=== PATIENT | male | born 1980 | race American Indian/Alaskan Native ===

== ENCOUNTER 2016-12-03 12:05 | Emergency (ER) | payer OTHER, MEDICAID ==
[2016-12-03 12:55] VITALS: BP 136/67
[2016-12-03] MEDS ORDERED: Ondansetron 4 MG Tab.DIS PO ONE (12:59)
[2016-12-03] MEDS ORDERED: Doxycycline 100 MG Cap PO ONE (12:59)
--- NOTE | 2016-12-03 13:18 | EDM.PDOC ---
Scribed by Meeta Hillman 12/03/16 1317 for Celestino Wilson MD ED HPI GENERAL MEDICAL PROBLEM - General Chief Complaint: Fever Stated Complaint: hi fever sick [id number] Time Seen by Provider: 12/03/16 12:53 Source of Information: Reports: Patient, RN, RN Notes Reviewed History Limitations: Reports: No Limitations - History of Present Illness INITIAL COMMENTS - FREE TEXT/NARRATIVE: Patient complains of tick bite to the left anterior king yesterday. Patient states that he removed the tick immediately when he found it. Late last evening he developed chills and subjective fever, little nausea with one episode of emesis and generalized body aches. Patient states his nephew was recently diagnosed with Lyme's disease. His girlfriend googled Lyme's disease and thinks he has it. He denies any swollen joints. Location: Reports: Lower Extremity, Left Quality: Reports: Ache Severity: Moderate Improves with: Reports: None Worsens with: Reports: None Associated Symptoms: Reports: No Other Symptoms - Related Data Allergies Allergy/AdvReac Type Severity Reaction Status Date / Time cephalexin monohydrate Allergy Hives Verified 03/08/14 08:03 [From Keflex] Home Meds: Home Meds ClonazePAM [KlonoPIN] 1 mg PO TID 03/08/14 [History] levETIRAcetam [Keppra] 1 tab PO BID 12/03/16 [History] Past Medical History Neurological History: Reports: Other (See Below) (epilepsy) Psychiatric History: Reports: Anxiety (with panic attacks) Social & Family History - Tobacco Use Smoking Status *Q: Current Every Day Smoker Years of Tobacco use: 11 - Alcohol Use Days Per Week of Alcohol Use: 0 - Recreational Drug Use Recreational Drug Use: No ED ROS GENERAL - Review of Systems Review Of Systems: ROS reveals no pertinent complaints other than HPI. ED EXAM, GENERAL - Physical Exam Exam: See Below Exam Limited By: No Limitations General Appearance: Alert, WD/WN, No Apparent Distress Eye Exam: Bilateral Eye: Normal Inspection Ears: Normal External Exam, Normal Canal, Hearing Grossly Normal, Normal TMs Nose: Normal Inspection, Normal Mucosa, No Blood Throat/Mouth: Normal Inspection, Normal Lips, Normal Teeth, Normal Gums, Normal Oropharynx, Normal Voice, No Airway Compromise Head: Atraumatic, Normocephalic Neck: Normal Inspection, Supple, Non-Tender, Full Range of Motion Respiratory/Chest: No Respiratory Distress, Lungs Clear, Normal Breath Sounds, No Accessory Muscle Use, Chest Non-Tender Cardiovascular: Normal Peripheral Pulses, Regular Rate, Rhythm, No Edema, No Gallop, No JVD, No Murmur, No Rub GI/Abdominal: Normal Bowel Sounds, Soft, Non-Tender, No Organomegaly, No Distention, No Abnormal Bruit, No Mass (Male) Exam: Deferred Rectal (Males) Exam: Deferred Back Exam: Normal Inspection, Full Range of Motion, NT Extremities: Normal Inspection, Normal Range of Motion, Non-Tender, Normal Capillary Refill, No Pedal Edema Neurological: Alert, Oriented, CN II-XII Intact, Normal Cognition, Normal Gait, Normal Reflexes, No Motor/Sensory Deficits Psychiatric: Anxious Skin Exam: Other (a 2cm diameter area of erythema with a central tick bite with no retained tick material. No bulls eye rash.) Lymphatic: No Adenopathy Course - Vital Signs Last Recorded V/S: Last Vital Signs Temp 36.5 C 12/03/16 12:40 Pulse 60 12/03/16 12:40 Resp 16 12/03/16 12:40 BP 136/67 12/03/16 12:40 Pulse Ox 99 12/03/16 12:40 - Orders/Labs/Meds Orders: Active Orders 24 hr Category Date Time Status AMYLASE [CHEM] Stat Lab 12/03/16 13:10 Received CBC WITH AUTO DIFF [HEME] Stat Lab 12/03/16 13:10 Received COMPREHENSIVE METABOLIC PN,CMP [CHEM] Stat Lab 12/03/16 13:10 Received LIPASE [CHEM] Stat Lab 12/03/16 13:10 Received Meds: Medications Discontinued Medications Generic Name Dose Route Start Last Admin Trade Name Freq PRN Reason Stop Dose Admin Doxycycline Hyclate 100 mg 12/03/16 12:59 Vibramycin PO 12/03/16 13:00 ONETIME ONE Ondansetron HCl 4 mg 12/03/16 12:59 Zofran Odt PO 12/03/16 13:00 ONETIME ONE Departure - Departure Time of Disposition: 13:17 Disposition: Home, Self-Care 01 Condition: Good Clinical Impression: Myalgia Tick bite of left lower leg Qualifiers: Encounter type: initial encounter Qualified Code(s): S80.862A - Insect bite ( nonvenomous), left lower leg, initial encounter; W57.XXXA - Bitten or stung by nonvenomous insect and other nonvenomous arthropods, initial encounter - Discharge Information Instructions: Lyme Disease Forms: ED Department Discharge Additional Instructions: RX: Doxycycline 100mg. Phenergan 25mg. Follow up in clinic in 7 days for recheck and for Lyme's disease blood test. - My Orders Last 24 Hours: My Active Orders 12/03/16 13:10 AMYLASE [CHEM] Stat CBC WITH AUTO DIFF [HEME] Stat COMPREHENSIVE METABOLIC PN,CMP [CHEM] Stat LIPASE [CHEM] Stat - Assessment/Plan Last 24 Hours: My Active Orders 12/03/16 13:10 AMYLASE [CHEM] Stat CBC WITH AUTO DIFF [HEME] Stat COMPREHENSIVE METABOLIC PN,CMP [CHEM] Stat LIPASE [CHEM] Stat I have read and agree with the documentation that has been completed regarding this visit. By signing this record, I attest that the documentation was completed in my physical presence and is an accurate record of the encounter.
[2016-12-03 13:35] LABS: CHLORIDE,CL 104 mmol/L (101-111); SODIUM,NA 138 mmol/L (135-145)
== END 2016-12-03 13:49 | disposition home or self-care (01) ==
LOC: DL.ED 12:05
DX: S80.862A Insect bite (nonvenomous), left lower leg, initial encounter (principal); M79.1 Myalgia; F41.9 Anxiety disorder, unspecified; F17.210 Nicotine dependence, cigarettes, uncomplicated; Z88.8 Allergy status to other drugs, medicaments and biological substances; W57.XXXA Bitten or stung by nonvenomous insect and other nonvenomous arthropods, initial encounter
CPT/HCPCS: 36415; 80053; 82150; 83690; 85025; 99283; A9270

== ENCOUNTER 2017-02-09 11:49 | Emergency (ER) | payer MEDICAID, OTHER ==
--- NOTE | 2017-02-09 11:56 | EDM.PDOC ---
ED HPI GENERAL MEDICAL PROBLEM - General Chief Complaint: Lower Extremity Injury/Pain Stated Complaint: FELL, BROKE RT HIP Time Seen by Provider: 02/09/17 11:55 Source of Information: Reports: Patient, Family, Old Records, RN, RN Notes Reviewed - History of Present Illness INITIAL COMMENTS - FREE TEXT/NARRATIVE: Patient presents to the ER by [facility] with c/o right leg/hip pain. He states he was going to the neighbors, slipped on a towel and fell down 4-5 steps. He states he is having severe pain in the right upper leg/hip. Rates pain 10/10. He states he did not hit his head or lose consciousness. Onset: Today, Sudden Location: Reports: Lower Extremity, Right Severity: Severe Improves with: Reports: None Worsens with: Reports: Movement Associated Symptoms: Reports: No Other Symptoms Right Hip Pain Score (Numeric/FACES): 10 - Related Data Allergies Allergy/AdvReac Type Severity Reaction Status Date / Time cephalexin monohydrate Allergy Hives Verified 02/09/17 12:26 [From Keflex] Home Meds: Home Meds ClonazePAM [KlonoPIN] 1 mg PO TID 03/08/14 [History] levETIRAcetam [Keppra] 1 tab PO BID 12/03/16 [History] Past Medical History Neurological History: Reports: Other (See Below) (epilepsy) Psychiatric History: Reports: Anxiety (with panic attacks) Social & Family History - Tobacco Use Smoking Status *Q: Current Every Day Smoker Years of Tobacco use: 11 Packs/Tins Daily: 0.5 - Caffeine Use Caffeine Use: Reports: Soda - Alcohol Use Days Per Week of Alcohol Use: 0 - Recreational Drug Use Recreational Drug Use: No Recreational Drug Type: Reports: Marijuana/Hashish Review of Systems - Review of Systems Review Of Systems: ROS reveals no pertinent complaints other than HPI. ED EXAM, GENERAL - Physical Exam Exam: See Below Exam Limited By: No Limitations General Appearance: Alert, WD/WN, No Apparent Distress Throat/Mouth: Normal Inspection Head: Atraumatic, Normocephalic Neck: Normal Inspection Respiratory/Chest: No Respiratory Distress, Lungs Clear, Normal Breath Sounds, No Accessory Muscle Use, Chest Non-Tender Cardiovascular: Normal Peripheral Pulses, Regular Rate, Rhythm, No Edema, No Gallop, No JVD, No Murmur, No Rub Peripheral Pulses: 2+: Femoral (L), Femoral (R), Dorsalis Pedis (L), Dorsalis Pedis (R) GI/Abdominal: Normal Bowel Sounds, Soft, Non-Tender, No Organomegaly, No Distention (Male) Exam: Deferred Rectal (Males) Exam: Deferred Back Exam: Normal Inspection, Full Range of Motion Extremities: No Pedal Edema, Leg Pain (right), Limited Range of Motion (right) Neurological: Alert, Oriented, Normal Cognition Psychiatric: Normal Affect, Normal Mood Skin Exam: Warm, Dry, Intact, Normal Color, No Rash Lymphatic: No Adenopathy Course - Vital Signs Last Recorded V/S: Last Vital Signs Temp 97 F 02/09/17 12:28 Pulse 74 02/09/17 12:28 Resp 16 02/09/17 12:28 BP 106/69 02/09/17 12:28 Pulse Ox 99 02/09/17 12:28 - Orders/Labs/Meds Meds: Medications Discontinued Medications Generic Name Dose Route Start Last Admin Trade Name Cornell PRN Reason Stop Dose Admin Hydromorphone HCl 1 mg 02/09/17 12:41 02/09/17 12:53 Dilaudid IM 02/09/17 12:42 1 mg ONETIME ONE Administration - Radiology Interpretation Free Text/Narrative:: Right hip/pelvis xray: Comminuted intertrochanteric fracture proximal right femur See Rad report Departure - Departure Time of Disposition: 13:38 Disposition: DC/Tfer to Acute Hospital 02 Condition: Fair Clinical Impression: Intertrochanteric fracture of right hip Qualifiers: Encounter type: initial encounter Fracture type: closed Fracture alignment: displaced Qualified Code(s): S72.141A - Displaced intertrochanteric fracture of right femur, initial encounter for closed fracture - Discharge Information Referrals: Roddy Bui [Primary Care Provider] - Forms: ED Department Discharge, Interfacility Transfer [facility]
[2017-02-09 12:35] VITALS: BP 106/69
[2017-02-09] MEDS ORDERED: HYDROmorphone 1 MG/ML Syringe IM ONE (12:41)
--- NOTE | 2017-02-09 13:25 | CR ---
Clinical history: 36-year-old male "slipped on wet towel". Hip pain. Interpretation: AP pelvis/hips and AP/cross table lateral view of the proximal right femur confirm ac tim, badly comminuted intertrochanteric fracture proximal right femur. Symmetric spacing normal-appearing SI and hip joints bilaterally.. No pelvic or contralateral left hi p fracture. No foreign bodies.
== END 2017-02-09 13:55 ==
LOC: DL.ED 11:49
DX: S72.141A Displaced intertrochanteric fracture of right femur, initial encounter for closed fracture (principal); F17.210 Nicotine dependence, cigarettes, uncomplicated; Z88.1 Allergy status to other antibiotic agents; W01.0XXA Fall on same level from slipping, tripping and stumbling without subsequent striking against object, initial encounter
CPT/HCPCS: 73502; 96372; 99285; J1170

== ENCOUNTER 2020-06-03 15:59 | Emergency (ER) | payer MEDICAID, OTHER ==
[2020-06-03 16:31] VITALS: BP 101/56; PULSE 68
--- NOTE | 2020-06-03 16:49 | EDM.PDOC ---
Scribed by Meeta Hillman 06/03/20 [id number] for Celestino Wilson MD ED HPI GENERAL MEDICAL PROBLEM - General Chief Complaint: ENT Problem Stated Complaint: UPPER LEFT BUMPIN MOUTH NEAR TOOTH Time Seen by Provider: 06/03/20 16:39 Source of Information: Reports: Patient, RN, RN Notes Reviewed History Limitations: Reports: No Limitations - History of Present Illness INITIAL COMMENTS - FREE TEXT/NARRATIVE: Patient presents to ER by [facility] stating he was on antibiotic a month ago for teeth hurting. Patient states he has an appointment on July 12. He is having pain to the upper left side roof of his mouth and states there is a pocket. It is swollen. He rates the pain 8, took 600 mg Ibuprofen at 1400, states wants antibiotic, not pain pills. Onset: Gradual Duration: Constant, Getting Worse Location: Reports: Other (mouth) Quality: Reports: Ache Severity: Moderate Improves with: Reports: None Worsens with: Reports: Eating Associated Symptoms: Reports: No Other Symptoms Left Gums Pain Score (Numeric/FACES): 8 - Related Data Allergies Allergy/AdvReac Type Severity Reaction Status Date / Time cephalexin monohydrate Allergy Hives Verified 06/03/20 16:31 [From Keflex] Home Meds: Home Meds levETIRAcetam [Keppra] 500 mg PO BID 12/03/16 [History] Past Medical History HEENT History: Reports: None Cardiovascular History: Reports: None Respiratory History: Reports: None Gastrointestinal History: Reports: None Genitourinary History: Reports: None Neurological History: Reports: Seizure Psychiatric History: Reports: Addiction, Anxiety Endocrine/Metabolic History: Reports: None Hematologic History: Reports: None Immunologic History: Reports: None Oncologic (Cancer) History: Reports: None Dermatologic History: Reports: None - Infectious Disease History Other Infectious Disease History: not aware - Past Surgical History Head Surgeries/Procedures: Reports: None Musculoskeletal Surgical History: Reports: Other (See Below) Other Musculoskeletal Surgeries/Procedures:: left femur broken as a child Social & Family History - Family History Family Medical History: No Pertinent Family History - Tobacco Use Tobacco Use Status *Q: Current Every Day Tobacco User Years of Tobacco use: 25 Packs/Tins Daily: 0.5 Second Hand Smoke Exposure: No - Caffeine Use Caffeine Use: Reports: Soda - Recreational Drug Use Recreational Drug Type: Reports: Marijuana/Hashish Other Recreational Drug Type: former methamphetamine - Living Situation & Occupation Living situation: Reports: with Significant Other ED ROS GENERAL - Review of Systems Review Of Systems: Comprehensive ROS is negative, except as noted in HPI. ED EXAM, GENERAL - Physical Exam Exam: See Below Exam Limited By: No Limitations General Appearance: Alert, No Apparent Distress Eye Exam: Bilateral Eye: Normal Inspection Nose: Normal Inspection Throat/Mouth: Normal Lips, Normal Voice, No Airway Compromise, Other (Extensive chronic dental decay (meth mouth), abscess at the roof of the mouth adj. to the left maxillary incisor) Head: Atraumatic, Normocephalic. No: Facial Swelling, Facial Tenderness Neck: Normal Inspection, Supple, Non-Tender, Full Range of Motion. No: Lymphadenopathy (L), Lymphadenopathy (R) Respiratory/Chest: No Respiratory Distress Cardiovascular: Regular Rate, Rhythm Neurological: Alert, Oriented, CN II-XII Intact, No Motor/Sensory Deficits Psychiatric: Normal Mood Skin Exam: Warm, Dry, Intact Course - Vital Signs Last Recorded V/S: Last Vital Signs Temp 98.6 F 06/03/20 16:26 Pulse 68 06/03/20 16:26 Resp 16 06/03/20 16:26 BP 101/56 L 06/03/20 16:26 Pulse Ox 98 06/03/20 16:26 Departure - Departure Time of Disposition: 16:44 Disposition: Home, Self-Care 01 Condition: Good Clinical Impression: Dental abscess - Discharge Information *PRESCRIPTION DRUG MONITORING PROGRAM REVIEWED*: Not Applicable *COPY OF PRESCRIPTION DRUG MONITORING REPORT IN PATIENT ROJELIO: Not Applicable Instructions: Dental Abscess Forms: ED Department Discharge Additional Instructions: Rx: Clindamycin 300mg Use antibacterial mouth wash four times a day. Follow up with dentist or your primary doctor next week. Sepsis Event Note (ED) - Evaluation Sepsis Screening Result: No Definite Risk - Focused Exam Vital Signs: Vital Signs Temp Pulse Resp BP Pulse Ox 06/03/20 16:26 98.6 F 68 16 101/56 L 98 I have read and agree with the documentation that has been completed regarding this visit. By signing this record, I attest that the documentation was completed in my physical presence and is an accurate record of the encounter.
== END 2020-06-03 16:50 | disposition home or self-care (01) ==
LOC: DL.ED 15:59
DX: K04.7 Periapical abscess without sinus (principal); F17.210 Nicotine dependence, cigarettes, uncomplicated; R56.9 Unspecified convulsions; Z79.899 Other long term (current) drug therapy; Z88.1 Allergy status to other antibiotic agents
CPT/HCPCS: 99282

== ENCOUNTER 2020-11-29 12:29 | Emergency (ER) | payer MEDICAID ==
[2020-11-29 12:57] VITALS: BP 116/77; PULSE 70
[2020-11-29] MEDS ORDERED: Ondansetron 4 MG/2 ML SDV IVPUSH ONE (13:05)
--- NOTE | 2020-11-29 13:28 | EDM.PDOC ---
ED HPI GENERAL MEDICAL PROBLEM - General Chief Complaint: Neurological Problem Stated Complaint: AMBULANCE Time Seen by Provider: 11/29/20 13:15 Source of Information: Reports: Patient, RN, RN Notes Reviewed History Limitations: Reports: No Limitations - History of Present Illness INITIAL COMMENTS - FREE TEXT/NARRATIVE: Truman is a 40 y/o male who presents to the ED via [facility] with complaints of seizure. Per EMS, the patient had two seizures witnessed by son who called EMS. Upon arrival to this facility the patient is alert and oriented to all spheres, but is sleepy; GCS 15. The patient attest to a history of seizures for which he takes Levetiracetam 500mg BID. The patient states he took his medications today and has not missed a dose. Prior to seizures today the patient denies recent illness, fever, shaking chills, chest pain, palpitations, abdominal pain, nausea, vomiting, or diarrhea. Today he states generalized muscle pain, he has not taken any medications for this pain. Generalized Pain Score (Numeric/FACES): 5 - Related Data Allergies Allergy/AdvReac Type Severity Reaction Status Date / Time cephalexin monohydrate Allergy Hives Verified 11/29/20 12:51 [From Keflex] Home Meds: Home Meds levETIRAcetam [Keppra] 500 mg PO BID 12/03/16 [History] Buprenorphine HCl/Naloxone HCl [Suboxone 4 mg-1 mg Sl Film] 1 tab PO BID 11/29/20 [History] Escitalopram Oxalate 30 mg PO DAILY 11/29/20 [History] Past Medical History HEENT History: Reports: None Cardiovascular History: Reports: None Respiratory History: Reports: None Gastrointestinal History: Reports: None Genitourinary History: Reports: None Neurological History: Reports: Seizure Psychiatric History: Reports: Addiction, Anxiety Endocrine/Metabolic History: Reports: None Hematologic History: Reports: None Immunologic History: Reports: None Oncologic (Cancer) History: Reports: None Dermatologic History: Reports: None - Infectious Disease History Infectious Disease History: Reports: None Other Infectious Disease History: not aware - Past Surgical History Head Surgeries/Procedures: Reports: None Musculoskeletal Surgical History: Reports: Other (See Below) Other Musculoskeletal Surgeries/Procedures:: left femur broken as a child, rods and pins in right leg Social & Family History - Family History Family Medical History: No Pertinent Family History - Tobacco Use Tobacco Use Status *Q: Current Every Day Tobacco User Years of Tobacco use: 22 Packs/Tins Daily: 0.2 - Caffeine Use Caffeine Use: Reports: None - Recreational Drug Use Recreational Drug Use: Yes Drug Use in Last 12 Months: Yes Recreational Drug Type: Reports: Marijuana/Hashish Recreational Drug Use Frequency: Daily - Living Situation & Occupation Living situation: Reports: with Significant Other ED ROS GENERAL - Review of Systems Review Of Systems: Comprehensive ROS is negative, except as noted in HPI. - Physical Exam Exam: See Below Exam Limited By: No Limitations General Appearance: Alert, No Apparent Distress, Other (Disheveled and sleepy) Eye Exam: Bilateral Eye: EOMI, Normal Inspection, PERRL (3mm) Ears: Normal External Exam, Hearing Grossly Normal Nose: Normal Inspection, Normal Mucosa, No Blood Throat/Mouth: Normal Inspection, Normal Oropharynx, Normal Voice, No Airway Compromise Head Exam: Atraumatic, Normocephalic Neck: Normal Inspection, Supple, Non-Tender, Full Range of Motion. No: Lymphadenopathy (L), Lymphadenopathy (R) Respiratory/Chest: No Respiratory Distress, Lungs Clear, Normal Breath Sounds, No Accessory Muscle Use, Chest Non-Tender Cardiovascular: Normal Peripheral Pulses, Regular Rate, Rhythm, No Edema, No Gallop, No JVD, No Murmur, No Rub GI/Abdominal: Normal Bowel Sounds, Soft, Non-Tender, No Distention, No Abnormal Bruit, No Mass, Pelvis Stable (Male) Exam: Deferred Rectal (Males) Exam: Deferred Neuro Exam (Abbreviated): Alert, Oriented, CN II-XII Intact, Normal Cognition, Normal Gait, Normal Reflexes, No Motor/Sensory Deficits. No: Confused, Disoriented, Slow to Respond Back Exam: Normal Inspection, Full Range of Motion Extremities: Normal Inspection, Normal Range of Motion, No Pedal Edema, Normal Capillary Refill Psychiatric: Normal Affect, Normal Mood Skin Exam: Warm, Dry, Intact, Normal Color, No Rash. No: Cyanosis, Jaundice, Mottled, Pallor #1 Interpretation EKG Date: 11/29/20 Time: 13:24 Rhythm: Other (Sinus bradycardia) Rate (Beats/Min): 59 [place]: Normal P-Wave: Present QRS: Normal ST-T: Normal QT: Normal OK/PQ Interval: 0.172 Comparison: NA - No Prior EKG EKG Interpretation Comments: SB; No evidence of acute myocardial ischemia Course - Vital Signs Last Recorded V/S: Last Vital Signs Temp 97.0 F 11/29/20 12:53 Pulse 70 11/29/20 12:53 Resp 18 11/29/20 12:53 BP 116/77 11/29/20 12:53 Pulse Ox 97 11/29/20 12:53 - Orders/Labs/Meds Labs: Laboratory Tests 11/29/20 11/29/20 11/29/20 Range/Units 13:12 13:12 13:12 WBC 12.0 H (5.0-10.0) 10^3/uL RBC 4.75 (4.6-6.2) 10^6/uL Hgb 15.2 (14.0-18.0) g/dL Hct 43.5 (40.0-54.0) % MCV 91.6 D (80-100) fL MCH 32.0 (27.0-34.0) pg MCHC 34.9 (33.0-35.0) g/dL Plt Count 361 D (150-450) 10^3/uL Neut % (Auto) 79.6 H (42.2-75.2) % Lymph % (Auto) 14.1 L (20.5-50.1) % [place] % (Auto) 5.4 (2-8) % Eos % (Auto) 0.8 L (1.0-3.0) % Baso % (Auto) 0.1 (0.0-1.0) % Sodium 140 (136-145) mmol/L Potassium 4.3 (3.5-5.1) mmol/L Chloride 104 (98-107) mmol/L Carbon Dioxide 25 (21-32) mmol/L Anion Gap 15.3 H (7-13) mEq/L BUN 12 (7-18) mg/dL Creatinine 0.98 (0.70-1.30) mg/dL Est Cr Clr Drug Dosing 112.10 mL/min Estimated GFR (MDRD) > 60 BUN/Creatinine Ratio 12.2 (No establ ref range) Glucose 129 H (70-99) mg/dL Lactic Acid 2.1 H* (0.4-2.0) mmol/L Calcium 8.9 (8.5-10.1) mg/dL Magnesium 2.2 (1.8-2.4) mg/dL Total Bilirubin 0.5 (0.2-1.0) mg/dL AST 35 (15-37) U/L ALT 52 (16-63) U/L Alkaline Phosphatase 121 H (46-116) U/L Troponin I High Sens 45 (<=76) pg/mL C-Reactive Protein 1.0 H (0.0-0.9) mg/dL Total Protein 7.9 (6.4-8.2) g/dL Albumin 4.0 (3.4-5.0) g/dL Globulin 3.9 Albumin/Globulin Ratio 1.0 Urine Color (YELLOW) Urine Appearance (CLEAR) Urine pH (5.0-9.0) Ur Specific [place] (1.005-1.030) Urine Protein (NEGATIVE) Urine Glucose (UA) (NEGATIVE) Urine Ketones (NEGATIVE) Urine Occult Blood (NEGATIVE) Urine Nitrite (NEGATIVE) Urine Bilirubin (NEGATIVE) Urine Urobilinogen (0.2-1.0) mg/dL Ur Leukocyte Esterase (NEGATIVE) Urine RBC /HPF Urine WBC (0-5/HPF) /HPF Ur Epithelial Cells (NOT SEEN) /HPF Urine Bacteria (0-FEW/HPF) /HPF Urine Mucus (NOT SEEN) /LPF Urine Other Urine Opiates Screen (NEGATIVE) Ur Oxycodone Screen (NEGATIVE) Urine Methadone Screen (NEGATIVE) Ur Barbiturates Screen (NEGATIVE) U Tricyclic Antidepress (NEGATIVE) Ur Phencyclidine Scrn (NEGATIVE) Ur Amphetamine Screen (NEGATIVE) U Methamphetamines Scrn (NEGATIVE) Urine MDMA Screen (NEGATIVE) U Benzodiazepines Scrn (NEGATIVE) Urine Cocaine Screen (NEGATIVE) U Marijuana (THC) Screen (NEGATIVE) Ethyl Alcohol 3 (0) mg/dL 11/29/20 11/29/20 Range/Units 13:17 13:17 WBC (5.0-10.0) 10^3/uL RBC (4.6-6.2) 10^6/uL Hgb (14.0-18.0) g/dL Hct (40.0-54.0) % MCV (80-100) fL MCH (27.0-34.0) pg MCHC (33.0-35.0) g/dL Plt Count (150-450) 10^3/uL Neut % (Auto) (42.2-75.2) % Lymph % (Auto) (20.5-50.1) % [place] % (Auto) (2-8) % Eos % (Auto) (1.0-3.0) % Baso % (Auto) (0.0-1.0) % Sodium (136-145) mmol/L Potassium (3.5-5.1) mmol/L Chloride (98-107) mmol/L Carbon Dioxide (21-32) mmol/L Anion Gap (7-13) mEq/L BUN (7-18) mg/dL Creatinine (0.70-1.30) mg/dL Est Cr Clr Drug Dosing mL/min Estimated GFR (MDRD) BUN/Creatinine Ratio (No establ ref range) Glucose (70-99) mg/dL Lactic Acid (0.4-2.0) mmol/L Calcium (8.5-10.1) mg/dL Magnesium (1.8-2.4) mg/dL Total Bilirubin (0.2-1.0) mg/dL AST (15-37) U/L ALT (16-63) U/L Alkaline Phosphatase (46-116) U/L Troponin I High Sens (<=76) pg/mL C-Reactive Protein (0.0-0.9) mg/dL Total Protein (6.4-8.2) g/dL Albumin (3.4-5.0) g/dL Globulin Albumin/Globulin Ratio Urine Color Yellow (YELLOW) Urine Appearance Slightly cloudy (CLEAR) Urine pH 7.0 (5.0-9.0) Ur Specific [place] 1.025 (1.005-1.030) Urine Protein 30 H (NEGATIVE) Urine Glucose (UA) Negative (NEGATIVE) Urine Ketones Negative (NEGATIVE) Urine Occult Blood Trace-intact H (NEGATIVE) Urine Nitrite Negative (NEGATIVE) Urine Bilirubin Negative (NEGATIVE) Urine Urobilinogen 0.2 (0.2-1.0) mg/dL Ur Leukocyte Esterase Negative (NEGATIVE) Urine RBC 0-5 /HPF Urine WBC 0-5 (0-5/HPF) /HPF Ur Epithelial Cells Rare (NOT SEEN) /HPF Urine Bacteria Not seen (0-FEW/HPF) /HPF Urine Mucus Not seen (NOT SEEN) /LPF Urine Other Urine Opiates Screen Negative (NEGATIVE) Ur Oxycodone Screen Negative (NEGATIVE) Urine Methadone Screen Negative (NEGATIVE) Ur Barbiturates Screen Negative (NEGATIVE) U Tricyclic Antidepress Negative (NEGATIVE) Ur Phencyclidine Scrn Negative (NEGATIVE) Ur Amphetamine Screen Negative (NEGATIVE) U Methamphetamines Scrn Negative (NEGATIVE) Urine MDMA Screen Negative (NEGATIVE) U Benzodiazepines Scrn Negative (NEGATIVE) Urine Cocaine Screen Negative (NEGATIVE) U Marijuana (THC) Screen Positive H (NEGATIVE) Ethyl Alcohol (0) mg/dL Meds: Medications Discontinued Medications Generic Name Dose Route Start Last Admin Trade Name Freq PRN Reason Stop Dose Admin Haloperidol Lactate Confirm 11/29/20 13:41 11/29/20 14:09 Haloperidol Lactate 5 Mg/Ml Sdv Administered 11/29/20 13:42 Not Given Dose 5 mg .ROUTE .STK-MED ONE Haloperidol Lactate Confirm 11/29/20 13:51 11/29/20 14:10 Haloperidol Lactate 5 Mg/Ml Sdv Administered 11/29/20 13:52 Not Given Dose 5 mg .ROUTE .STK-MED ONE Haloperidol Lactate 2 mg 11/29/20 14:08 11/29/20 13:43 Haloperidol Lactate 5 Mg/Ml Sdv IM 11/29/20 14:09 2 mg ONETIME ONE Administration Haloperidol Lactate 5 mg 11/29/20 14:08 11/29/20 14:11 Haloperidol Lactate 5 Mg/Ml Sdv IM 11/29/20 14:09 5 mg ONETIME ONE Administration Levetiracetam Confirm 11/29/20 13:40 11/29/20 14:12 Levetiracetam In Nacl (Iso-Os) Administered 11/29/20 13:41 Not Given Dose 200 mls @ as directed .ROUTE .STK-MED ONE Levetiracetam 1,000 mg/ Premix 200 mls @ 800 mls/hr 11/29/20 14:02 11/29/20 14:32 IV 11/29/20 14:03 800 mls/hr ONETIME ONE Administration Sodium Chloride 1,000 mls @ 999 mls/hr 11/29/20 15:02 11/29/20 15:09 Normal Saline IV 11/29/20 16:02 999 mls/hr .BOLUS ONE Administration Lorazepam Confirm 11/29/20 13:34 11/29/20 14:09 Lorazepam 2 Mg/Ml Sdv Administered 11/29/20 13:35 Not Given Dose 2 mg .ROUTE .STK-MED ONE Lorazepam Confirm 11/29/20 13:52 11/29/20 14:09 Lorazepam 2 Mg/Ml Sdv Administered 11/29/20 13:53 Not Given Dose 2 mg .ROUTE .STK-MED ONE Lorazepam 2 mg 11/29/20 14:07 11/29/20 13:35 Lorazepam 2 Mg/Ml Sdv IVPUSH 11/29/20 14:08 2 mg ONETIME ONE Administration Lorazepam 2 mg 11/29/20 14:08 11/29/20 13:50 Lorazepam 2 Mg/Ml Sdv IM 11/29/20 14:09 2 mg ONETIME ONE Administration Ondansetron HCl 4 mg 11/29/20 13:05 11/29/20 13:16 Ondansetron 4 Mg/2 Ml Sdv IVPUSH 11/29/20 13:06 4 mg ONETIME ONE Administration - Re-Assessments/Exams Free Text/Narrative Re-Assessment/Exam: 11/29/20 Shortly after patient arrival, post interview/assessment and lab draw, the patient experienced a 1 minute, 30 second long tonic clonic seizure. He was confused and combative in his post-ictal state. Ativan 2mg IVP administered. IV access lost, Haldol 2mg IM administered. Patient remains combative with staff. Additional Ativan 2mg IM and Haldol 5mg IM administered. Patient's in room with patient and staff. Patient resting in bed with eyes closed. equipment monitor phototypesetting reapplied. NS 1L and Keppra 1gm administered. Patient roused with voice. Able to state name and place, as well as recognizes people in the room. Findings of examination and lab work reviewed with patient's and mother. Discussed need for follow up with primary care provider given increase stress and recent seizure activity. Red flag signs and symptoms which would warrant reevaluation discussed. Patient, , and mother verbalized understanding and agreement with the plan of care. Departure - Departure Time of Disposition: 17:00 Disposition: Home, Self-Care 01 Condition: Good Clinical Impression: Seizure, Cannabis use, uncomplicated - Discharge Information *PRESCRIPTION DRUG MONITORING PROGRAM REVIEWED*: Not Applicable *COPY OF PRESCRIPTION DRUG MONITORING REPORT IN PATIENT ROJELIO: Not Applicable Instructions: Seizure, Adult, [id number] Forms: ED Department Discharge Additional Instructions: 1.) You may take ibuprofen (Advil/Motrin) 400mg every six hours, for general muscle aches. You may also take acetaminophen (Tylenol) 650mg every six hours, as muscle aches persist. You may stagger these medications so you are receiving a dose every three hours. 2.) Follow up with primary care provider regarding today's visit, especially seizing through medications. 3.) Rest following seizure. 4.) Return to the emergency room with any return of seizures. Sepsis Event Note (ED) - Evaluation Sepsis Screening Result: No Definite Risk - Focused Exam Vital Signs: Vital Signs Temp Pulse Resp BP Pulse Ox 11/29/20 12:53 97.0 F 70 18 116/77 97
[2020-11-29] MEDS ORDERED: LORazepam 2 MG/ML SDV ONE ×2 (13:34→13:52)
[2020-11-29] MEDS ORDERED: Haloperidol Lactate 5 MG/ML SDV ONE ×2 (13:41→13:51)
[2020-11-29 13:56] LABS: ANION GAP 15.3 mEq/L (7-13); CHLORIDE,CL 104 mmol/L (98-107)
[2020-11-29 13:58] LABS: SODIUM,NA 140 mmol/L (136-145)
[2020-11-29] MEDS ORDERED: levETIRAcetam in NaCl (iso-os) 1,000 MG in Premix Bag 1 BAG IV ONE ×2 (14:02)
[2020-11-29] MEDS ORDERED: LORazepam 2 MG/ML SDV IVPUSH ONE (14:07)
[2020-11-29] MEDS ORDERED: Haloperidol Lactate 5 MG/ML SDV IM ONE ×2 (14:08)
[2020-11-29] MEDS ORDERED: LORazepam 2 MG/ML SDV IM ONE (14:08)
[2020-11-29] MEDS ORDERED: Sodium Chloride 0.9% 1,000 ML IV ONE (15:02)
== END 2020-11-29 17:04 | disposition home or self-care (01) ==
LOC: DL.ED 12:29
DX: R56.9 Unspecified convulsions (principal); F12.90 Cannabis use, unspecified, uncomplicated; R00.1 Bradycardia, unspecified; Z72.0 Tobacco use; Z88.1 Allergy status to other antibiotic agents; Z79.899 Other long term (current) drug therapy
CPT/HCPCS: 36415; 80053; 80305-QW; 80307; 81001; 83605; 83735; 84484; 85025; 86140; 93005; 93010; 96365; 96372; 96375; 99284; 99284-25; J1630; J1953; J2060; J2405; J7030

== ENCOUNTER 2021-02-26 13:26 | Emergency (ER) | payer MEDICAID ==
[2021-02-26] MEDS ORDERED: Sodium Chloride 0.9% 1,000 ML IV ONE ×2 (13:38→15:44)
[2021-02-26 13:40] VITALS: BP 137/80; PULSE 64
[2021-02-26] MEDS ORDERED: Haloperidol Lactate 5 MG/ML SDV IVPUSH ONE (13:40)
--- NOTE | 2021-02-26 13:49 | EDM.PDOC ---
ED HPI GENERAL MEDICAL PROBLEM - General Chief Complaint: Abdominal Pain Stated Complaint: [id number] THROWING UP ALL MORNING Time Seen by Provider: 02/26/21 13:40 Source of Information: Reports: Patient, EMS, EMS Notes Reviewed, RN, RN Notes Reviewed History Limitations: Reports: Physical Impairment - History of Present Illness INITIAL COMMENTS - FREE TEXT/NARRATIVE: Patient is a 40-year-old male who presents to ER per [facility] with complaint of severe abdominal pain. Patient is hollering and crying upon arrival to the ER. Patient states he has vomited 4 or 5 times beginning this morning, EMS reported vomiting on the way into ER. IV was started in route and Zofran given per EMS. Upon arrival to the ER patient complains of lower abdominal pain bilaterally rating it a 10/10. Patient states he has had diarrhea since yesterday, denies fever but admits to chills. Patient states he does still have his appendix as well as his gallbladder. Patient s tates he has not been using drugs or alcohol, states he uses Suboxone. Onset: Today, Gradual Location: Reports: Abdomen Quality: Reports: Sharp, Stabbing Severity: Severe Improves with: Reports: None Worsens with: Reports: None Associated Symptoms: Reports: Fever/Chills, Loss of Appetite, Nausea/Vomiting Right Lower Abdomen Pain Score (Numeric/FACES): 10 - Related Data Allergies Allergy/AdvReac Type Severity Reaction Status Date / Time cephalexin monohydrate Allergy Hives Verified 11/29/20 12:51 [From Keflex] Home Meds: Home Meds levETIRAcetam [Keppra] 500 mg PO BID 12/03/16 [History] Buprenorphine HCl/Naloxone HCl [Suboxone 4 mg-1 mg Sl Film] 1 tab PO BID 11/29/20 [History] Escitalopram Oxalate 30 mg PO DAILY 11/29/20 [History] Past Medical History HEENT History: Reports: None Cardiovascular History: Reports: None Respiratory History: Reports: None Gastrointestinal History: Reports: None Genitourinary History: Reports: None Neurological History: Reports: Seizure Psychiatric History: Reports: Addiction, Anxiety Endocrine/Metabolic History: Reports: None Hematologic History: Reports: None Immunologic History: Reports: None Oncologic (Cancer) History: Reports: None Dermatologic History: Reports: None - Infectious Disease History Infectious Disease History: Reports: None Other Infectious Disease History: not aware - Past Surgical History Head Surgeries/Procedures: Reports: None Musculoskeletal Surgical History: Reports: Other (See Below) Other Musculoskeletal Surgeries/Procedures:: left femur broken as a child, rods and pins in right leg Social & Family History - Family History Family Medical History: No Pertinent Family History - Caffeine Use Caffeine Use: Reports: None - Living Situation & Occupation Living situation: Reports: with Significant Other ED ROS GENERAL - Review of Systems Review Of Systems: Comprehensive ROS is negative, except as noted in HPI. ED EXAM, GI/ABD - Physical Exam Exam: See Below Exam Limited By: Physical Impairment (patient writhing on the bed yelling and crying) General Appearance: Alert, WD/WN, Moderate Distress Eyes: Bilateral: Normal Appearance, EOMI Ears: Normal External Exam, Hearing Grossly Normal Nose: Normal Inspection Throat/Mouth: Normal Lips, Normal Oropharynx, Normal Voice, No Airway Compromise, Other (severe dental caries) Head: Atraumatic, Normocephalic Neck: Normal Inspection, Supple, Non-Tender, Full Range of Motion Respiratory/Chest: No Respiratory Distress, Lungs Clear, Normal Breath Sounds, No Accessory Muscle Use, Chest Non-Tender Cardiovascular: Normal Peripheral Pulses, Regular Rate, Rhythm, No Edema, No Gallop, No JVD, No Murmur, No Rub GI/Abdominal Exam: No Organomegaly, No Distention, No Abnormal Bruit, No Mass, Pelvis Stable, Guarding, Rigid, Tender (RLQ, LLQ), Abnormal Bowel Sounds (Male) Exam: Deferred Rectal (Males) Exam: Deferred Back Exam: Normal Inspection, Full Range of Motion, NT Extremities: Normal Inspection, Normal Range of Motion, Non-Tender, Normal Capillary Refill, No Pedal Edema Neurological: Alert, Oriented, CN II-XII Intact, Normal Cognition, Normal Reflexes, No Motor/Sensory Deficits Psychiatric: Anxious, Tearful Skin Exam: Warm, Dry, Intact, Normal Color, No Rash Lymphatic: No Adenopathy Course - Vital Signs Last Recorded V/S: Last Vital Signs Temp 97.7 F 02/26/21 13:37 Pulse 64 02/26/21 13:37 Resp 14 02/26/21 13:37 BP 137/80 02/26/21 13:37 Pulse Ox 99 02/26/21 13:37 - Orders/Labs/Meds Orders: Active Orders 24 hr Category Date Time Status CULTURE BLOOD [BC] Stat Lab 02/26/21 13:51 Received CULTURE BLOOD [BC] Stat Lab 02/26/21 14:32 Received Sodium Chloride 0.9% [Normal Saline] 1,000 ml Med 02/26/21 15:44 Active IV .BOLUS Blood Culture x2 Reflex Set [OM.PC] Stat Oth 02/26/21 13:37 Ordered Medication Orders Sodium Chloride (Normal Saline) 1,000 mls @ 999 mls/hr IV .BOLUS ONE Stop: 02/26/21 16:44 Last Admin: 02/26/21 16:03 Dose: 999 mls/hr Documented by: NAIDA Labs: Laboratory Tests 02/26/21 02/26/21 02/26/21 Range/Units 13:51 13:51 13:51 WBC 13.4 H (5.0-10.0) 10^3/uL RBC 4.59 L (4.6-6.2) 10^6/uL Hgb 14.4 (14.0-18.0) g/dL Hct 42.3 (40.0-54.0) % MCV 92.2 (80-100) fL MCH 31.4 (27.0-34.0) pg MCHC 34.0 (33.0-35.0) g/dL Plt Count 303 (150-450) 10^3/uL Neut % (Auto) 86.7 H (42.2-75.2) % Lymph % (Auto) 9.4 L (20.5-50.1) % [place] % (Auto) 3.5 (2-8) % Eos % (Auto) 0.1 L (1.0-3.0) % Baso % (Auto) 0.3 (0.0-1.0) % Sodium 140 (136-145) mmol/L Potassium 3.6 (3.5-5.1) mmol/L Chloride 103 (98-107) mmol/L Carbon Dioxide 21 (21-32) mmol/L Anion Gap 19.6 H (7-13) mEq/L BUN 11 (7-18) mg/dL Creatinine 1.09 (0.70-1.30) mg/dL Est Cr Clr Drug Dosing TNP Estimated GFR (MDRD) > 60 BUN/Creatinine Ratio 10.1 (No establ ref range) Glucose 150 H (70-99) mg/dL Lactic Acid 3.0 H* (0.4-2.0) mmol/L Calcium 8.9 (8.5-10.1) mg/dL Total Bilirubin 0.5 (0.2-1.0) mg/dL AST 26 (15-37) U/L ALT 39 (16-63) U/L Alkaline Phosphatase 128 H (46-116) U/L C-Reactive Protein 1.6 H (0.0-0.9) mg/dL Total Protein 7.9 (6.4-8.2) g/dL Albumin 3.8 (3.4-5.0) g/dL Globulin 4.1 Albumin/Globulin Ratio 0.9 Amylase 39 (25-115) U/L Lipase 114 (73-393) U/L Urine Color (YELLOW) Urine Appearance (CLEAR) Urine pH (5.0-9.0) Ur Specific [place] (1.005-1.030) Urine Protein (NEGATIVE) Urine Glucose (UA) (NEGATIVE) Urine Ketones (NEGATIVE) Urine Occult Blood (NEGATIVE) Urine Nitrite (NEGATIVE) Urine Bilirubin (NEGATIVE) Urine Urobilinogen (0.2-1.0) mg/dL Ur Leukocyte Esterase (NEGATIVE) Urine Opiates Screen (NEGATIVE) Ur Oxycodone Screen (NEGATIVE) Urine Methadone Screen (NEGATIVE) Ur Barbiturates Screen (NEGATIVE) U Tricyclic Antidepress (NEGATIVE) Ur Phencyclidine Scrn (NEGATIVE) Ur Amphetamine Screen (NEGATIVE) U Methamphetamines Scrn (NEGATIVE) Urine MDMA Screen (NEGATIVE) U Benzodiazepines Scrn (NEGATIVE) Urine Cocaine Screen (NEGATIVE) U Marijuana (THC) Screen (NEGATIVE) Ethyl Alcohol < 3 (0) mg/dL 02/26/21 02/26/21 Range/Units 15:58 15:58 WBC (5.0-10.0) 10^3/uL RBC (4.6-6.2) 10^6/uL Hgb (14.0-18.0) g/dL Hct (40.0-54.0) % MCV (80-100) fL MCH (27.0-34.0) pg MCHC (33.0-35.0) g/dL Plt Count (150-450) 10^3/uL Neut % (Auto) (42.2-75.2) % Lymph % (Auto) (20.5-50.1) % [place] % (Auto) (2-8) % Eos % (Auto) (1.0-3.0) % Baso % (Auto) (0.0-1.0) % Sodium (136-145) mmol/L Potassium (3.5-5.1) mmol/L Chloride (98-107) mmol/L Carbon Dioxide (21-32) mmol/L Anion Gap (7-13) mEq/L BUN (7-18) mg/dL Creatinine (0.70-1.30) mg/dL Est Cr Clr Drug Dosing Estimated GFR (MDRD) BUN/Creatinine Ratio (No establ ref range) Glucose (70-99) mg/dL Lactic Acid (0.4-2.0) mmol/L Calcium (8.5-10.1) mg/dL Total Bilirubin (0.2-1.0) mg/dL AST (15-37) U/L ALT (16-63) U/L Alkaline Phosphatase (46-116) U/L C-Reactive Protein (0.0-0.9) mg/dL Total Protein (6.4-8.2) g/dL Albumin (3.4-5.0) g/dL Globulin Albumin/Globulin Ratio Amylase (25-115) U/L Lipase (73-393) U/L Urine Color Yellow (YELLOW) Urine Appearance Clear (CLEAR) Urine pH 8.0 (5.0-9.0) Ur Specific [place] 1.020 (1.005-1.030) Urine Protein Negative (NEGATIVE) Urine Glucose (UA) Negative (NEGATIVE) Urine Ketones Negative (NEGATIVE) Urine Occult Blood Negative (NEGATIVE) Urine Nitrite Negative (NEGATIVE) Urine Bilirubin Negative (NEGATIVE) Urine Urobilinogen 0.2 (0.2-1.0) mg/dL Ur Leukocyte Esterase Negative (NEGATIVE) Urine Opiates Screen Positive H (NEGATIVE) Ur Oxycodone Screen Negative (NEGATIVE) Urine Methadone Screen Negative (NEGATIVE) Ur Barbiturates Screen Negative (NEGATIVE) U Tricyclic Antidepress Negative (NEGATIVE) Ur Phencyclidine Scrn Negative (NEGATIVE) Ur Amphetamine Screen Negative (NEGATIVE) U Methamphetamines Scrn Negative (NEGATIVE) Urine MDMA Screen Negative (NEGATIVE) U Benzodiazepines Scrn Negative (NEGATIVE) Urine Cocaine Screen Negative (NEGATIVE) U Marijuana (THC) Screen Positive H (NEGATIVE) Ethyl Alcohol (0) mg/dL Meds: Medications Generic Name Dose Route Start Last Admin Trade Name Cornell PRN Reason Stop Dose Admin Sodium Chloride 1,000 mls @ 999 mls/hr 02/26/21 15:44 02/26/21 16:03 Normal Saline IV 02/26/21 16:44 999 mls/hr .BOLUS ONE Administration Discontinued Medications Generic Name Dose Route Start Last Admin Trade Name Cornell PRN Reason Stop Dose Admin Haloperidol Lactate 5 mg 02/26/21 13:40 02/26/21 13:41 Haloperidol Lactate 5 Mg/Ml Sdv IVPUSH 02/26/21 13:41 5 mg ONETIME ONE Administration Sodium Chloride 1,000 mls @ 999 mls/hr 02/26/21 13:38 02/26/21 13:42 Normal Saline IV 02/26/21 14:38 999 mls/hr .BOLUS ONE Administration Iopamidol 100 ml 02/26/21 14:24 02/26/21 15:03 Iopamidol 612 Mg/Ml 100 Ml Bottle IVPUSH 02/26/21 14:25 100 ml ONETIME ONE Administration - Radiology Interpretation Free Text/Narrative:: Abdomen/Pelvis CT with contrast: [facility] Final Radiology Report Call: [phone] assistance Online chat: [email or web address] Name: UDAY SORTO Age: 40Years M Date: 02/26/2021 SSN: -- : [id number] Study: CT ABDOMEN PELVIS W CONT Requesting Physician: Beena Ferris Images: 421 Addl Studies: Provided Clinical History: abdominal pain/vomiting Contrast: With Contrast Medium: Isovue 300 Contrast Amount: 100 mL Contrast Method: Intravenous (IV) Page 1 of 2 PROCEDURE INFORMATION: Exam: CT Abdomen And Pelvis With Contrast Exam date and time: 02/26/2021 2:30 PM Age: 40 years old Clinical indication: Other: Abdominal pain/vomiting TECHNIQUE: Imaging protocol: Computed tomography of the abdomen and pelvis with contrast. Total images: 421 Radiation optimization: All CT scans at this facility use at least one of these dose optimization techniques: automated exposure control; mA and/or kV adjustment per patient size (includes targeted exams where dose is matched to clinical indication); or iterative reconstruction. Contrast material: ISOVUE 300; Contrast volume: 100 ml; Contrast route: INTRAVENOUS (IV); COMPARISON: No relevant prior studies available. FINDINGS: Limitations: Motion artifact does degrade imaging somewhat. Lungs: Minimal atelectasis left lung base. Liver: Normal. No mass. Gallbladder and bile ducts: Normal. No calcified stones. No ductal dilation. Pancreas: Normal. No ductal dilation. Spleen: Normal. No splenomegaly. Adrenal glands: Normal. No mass. Kidneys and ureters: Normal. No hydronephrosis. Stomach and bowel: Equivocal minimal wall thickening small bowel loops in the mid and right lower quadrant. No evidence for bowel obstruction. Appendix: No evidence of appendicitis. Intraperitoneal space: Small amount of fluid within the deep pelvis. Vasculature: Unremarkable. No abdominal aortic aneurysm. Lymph nodes: Scattered nonenlarged lymph nodes. Urinary bladder: Unremarkable as visualized. Reproductive: Unremarkable as visualized. Bones/joints: Orthopedic hardware right hip. Soft tissues: Small inguinal hernias containing fat. IMPRESSION: 1. Equivocal minimal wall thickening of a few loops of small bowel in the lower abdomen. In the appropriate clinical setting may represent underlying enteritis. 2. Small amount of fluid within the pelvis. 3. No other evidence for acute process within the abdomen/pelvis. Thank you for allowing us to participate in the care of your patient. Dictated and Authenticated by: Sd Bonilla MD 02/26/2021 3:53 PM Central Time ([place] & [place]) See rad report - Re-Assessments/Exams Free Text/Narrative Re-Assessment/Exam: 02/26/21 16:36 Patient states he is feeling much better, sleepy and would like to go home and rest. Departure - Departure Time of Disposition: 16:36 Disposition: Home, Self-Care 01 Condition: Fair Clinical Impression: Enteritis, Cannabinoid hyperemesis syndrome Vomiting Qualifiers: Vomiting type: unspecified Vomiting Intractability: non-intractable Nausea presence: with nausea Qualified Code(s): R11.2 - Nausea with vomiting, unspecified - Discharge Information *PRESCRIPTION DRUG MONITORING PROGRAM REVIEWED*: No *COPY OF PRESCRIPTION DRUG MONITORING REPORT IN PATIENT ROJELIO: No Instructions: Nausea and Vomiting, Adult, [id number], Abdominal Pain, Adult, [id number], Viral Gastroenteritis, Adult, [id number] Forms: ED Department Discharge Additional Instructions: Refrain from smoking marijuana Fluids only when not nauseated, advance to BRAT diet: Bananas, Rice, Applesauce, [place], and advance diet as tolerated May use Tylenol and/or ibuprofen as directed for pain Return to the ER with any worsening of symptoms Follow-up with your primary care provider next week Sepsis Event Note (ED) - Focused Exam Vital Signs: Vital Signs Temp Pulse Resp BP Pulse Ox 02/26/21 13:37 97.7 F 64 14 137/80 99 - My Orders Last 24 Hours: My Active Orders 02/26/21 13:37 Blood Culture x2 Reflex Set [OM.PC] Stat 02/26/21 13:51 CULTURE BLOOD [BC] Stat 02/26/21 14:32 CULTURE BLOOD [BC] Stat 02/26/21 15:44 Sodium Chloride 0.9% [Normal Saline] 1,000 ml IV .BOLUS - Assessment/Plan Last 24 Hours: My Active Orders 02/26/21 13:37 Blood Culture x2 Reflex Set [OM.PC] Stat 02/26/21 13:51 CULTURE BLOOD [BC] Stat 02/26/21 14:32 CULTURE BLOOD [BC] Stat 02/26/21 15:44 Sodium Chloride 0.9% [Normal Saline] 1,000 ml IV .BOLUS
[2021-02-26 14:17] LABS: ANION GAP 19.6 mEq/L (7-13); CHLORIDE,CL 103 mmol/L (98-107); SODIUM,NA 140 mmol/L (136-145)
[2021-02-26] MEDS ORDERED: Iopamidol 612 MG/ML 100 ML Bottle IVPUSH ONE (14:24)
--- NOTE | 2021-02-26 15:54 | CT ---
PROCEDURE INFORMATION: Exam: CT Abdomen And Pelvis With Contrast Exam date and time: 02/26/2021 2:30 PM Age: 40 years old Clinical indication: Other: Abdominal pain/vomiting TECHNIQUE: Imaging protocol: Computed tomography of the abdomen and pelvis with contrast. Total images: 421 Radiation optimization: All CT scans at this facility use at least one of these dose optimization techniques: automated exposure control; mA and/or kV adjustment per patient size (includes targeted exams where dose is matched to clinical indication); or iterative reconstruction. Contrast material: ISOVUE 300; Contrast volume: 100 ml; Contrast route: INTRAVENOUS (IV); COMPARISON: No relevant prior studies available. FINDINGS: Limitations: Motion artifact does degrade imaging somewhat. Lungs: Minimal atelectasis left lung base. Liver: Normal. No mass. Gallbladder and bile ducts: Normal. No calcified stones. No ductal dilation. Pancreas: Normal. No ductal dilation. Spleen: Normal. No splenomegaly. Adrenal glands: Normal. No mass. Kidneys and ureters: Normal. No hydronephrosis. Stomach and bowel: Equivocal minimal wall thickening small bowel loops in the mid and right lower quadrant. No evidence for bowel obstruction. Appendix: No evidence of appendicitis. Intraperitoneal space: Small amount of fluid within the deep pelvis. Vasculature: Unremarkable. No abdominal aortic aneurysm. Lymph nodes: Scattered nonenlarged lymph nodes. Urinary bladder: Unremarkable as visualized. Reproductive: Unremarkable as visualized. Bones/joints: Orthopedic hardware right hip. Soft tissues: Small inguinal hernias containing fat. IMPRESSION: 1. Equivocal minimal wall thickening of a few loops of small bowel in the lower abdomen. In the appropriate clinical setting may represent underlying enteritis. 2. Small amount of fluid within the pelvis. 3. No other evidence for acute process within the abdomen/pelvis.
[2021-02-26 16:14] LABS: AMPHETAMINES,URINE NEGATIVE (NEGATIVE); BARBITURATES,URINE NEGATIVE (NEGATIVE); BENZODIAZEPINE,URINE NEGATIVE (NEGATIVE); MDMA (ECSTASY), URINE NEGATIVE (NEGATIVE); METHADONE,URINE NEGATIVE (NEGATIVE); METHAMPHETAMINES,URINE NEGATIVE (NEGATIVE); OXYCODONE,URINE NEGATIVE (NEGATIVE); PHENCYCLIDINE,URINE NEGATIVE (NEGATIVE); TCA,URINE NEGATIVE (NEGATIVE)
[2021-02-26 16:15] LABS: OPIATES,URINE POSITIVE (NEGATIVE)
== END 2021-02-26 16:50 | disposition home or self-care (01) ==
LOC: DL.ED 13:26
DX: K52.9 Noninfective gastroenteritis and colitis, unspecified (principal); R11.2 Nausea with vomiting, unspecified; T40.7X5A Adverse effect of cannabis (derivatives), initial encounter; Z88.1 Allergy status to other antibiotic agents
CPT/HCPCS: 36415; 74177; 80053; 80305; 80307; 81003; 82150; 83605; 83690; 85025; 86140; 87040; 96374; 99284; J1630; J7030; Q9967

== ENCOUNTER 2021-09-29 15:08 | Emergency (ER) | payer MEDICAID ==
[2021-09-29 15:44] VITALS: BP 116/67; PULSE 57
== END 2021-09-29 16:24 | disposition left against medical advice (07) ==
LOC: DL.ED 15:08
DX: Z53.21 Procedure and treatment not carried out due to patient leaving prior to being seen by health care provider (principal)

== ENCOUNTER 2022-06-27 13:12 | Emergency (ER) | payer MEDICAID ==
[2022-06-27] MEDS ORDERED: LORazepam 2 MG/ML SDV IVPUSH ONE (13:21)
[2022-06-27 13:27] VITALS: BP 122/73; PULSE 69
[2022-06-27 14:09] LABS: ANION GAP 15.3 mEq/L (7-13); CHLORIDE,CL 107 mmol/L (98-107); ESTIMATED GFR 82 mL/min (>=60); SODIUM,NA 142 mmol/L (136-145)
[2022-06-27 15:45] LABS: AMPHETAMINES,URINE NEGATIVE (NEGATIVE); BARBITURATES,URINE NEGATIVE (NEGATIVE); BENZODIAZEPINE,URINE NEGATIVE (NEGATIVE); MDMA (ECSTASY), URINE NEGATIVE (NEGATIVE); METHADONE,URINE NEGATIVE (NEGATIVE); METHAMPHETAMINES,URINE NEGATIVE (NEGATIVE); OPIATES,URINE NEGATIVE (NEGATIVE); OXYCODONE,URINE NEGATIVE (NEGATIVE); PHENCYCLIDINE,URINE NEGATIVE (NEGATIVE); TCA,URINE NEGATIVE (NEGATIVE)
== END 2022-06-27 16:27 | disposition home or self-care (01) ==
LOC: DL.ED 13:12
DX: R56.9 Unspecified convulsions (principal); Z88.1 Allergy status to other antibiotic agents
CPT/HCPCS: 36415; 80053; 80305-QW; 80307; 81001; 83605; 85025; 96374; 99283; 99284-25; J2060

== ENCOUNTER 2022-10-13 18:50 | Emergency (ER) | payer MEDICAID ==
[2022-10-13 19:25] LABS: BASOPHILS PERCENT AUTO 0.3 % (0.0-1.0); EOSINOPHILS PERCENT AUTO 0.8 % (1.0-3.0); HEMATOCRIT 40.7 % (40.0-54.0); HEMOGLOBIN 14.2 g/dL (14.0-18.0); LYMPHOCYTES PERCENT AUTO 17.4 % (20.5-50.1); MEAN CORPUSCULAR HEMOGLOBIN 32.3 pg (27.0-34.0); MEAN CORPUSCULAR HGB CONC 34.9 g/dL (33.0-35.0); MEAN CORPUSCULAR VOLUME 92.5 fL (80-100); MONOCYTES PERCENT AUTO 6.4 % (2-8); NEUTROPHILS PERCENT AUTO 75.1 % (42.2-75.2); PLATELET COUNT,PLT 283 10^3/uL (150-450); WHITE BLOOD CELL COUNT,WBC 11.1 10^3/uL (5.0-10.0)
[2022-10-13] MEDS ORDERED: levETIRAcetam in NaCl (iso-os) 1,500 MG in Premix Bag 1 BAG IV ONE ×2 (19:33)
[2022-10-13] MEDS ORDERED: Sodium Chloride 0.9% 1,000 ML IV ONE (19:33)
[2022-10-13 19:40] VITALS: BP 122/76; PULSE 71
[2022-10-13 19:44] LABS: A/G RATIO 1.1; ALANINE AMINOTRANSFERASE,ALT 51 U/L (16-63); ALKALINE PHOSPHATASE 121 U/L (46-116); ANION GAP 13.7 mEq/L (7-13); ASPARTATE AMNIOTRANSFERASE,AST 29 U/L (15-37); BILIRUBIN TOTAL 0.2 mg/dL (0.2-1.0); BLOOD UREA NITROGEN,BUN 12 mg/dL (7-18); BUN/CREATININE RATIO 10.5 (No establ ref range); C-REACTIVE PROTEIN 0.7 mg/dL (0.0-0.9); CALCIUM 8.7 mg/dL (8.5-10.1); CARBON DIOXIDE,CO2 23 mmol/L (21-32); CHLORIDE,CL 107 mmol/L (98-107); CREATININE 1.14 mg/dL (0.70-1.30); GLUCOSE RANDOM 110 mg/dL (70-99); POTASSIUM,K 3.7 mmol/L (3.5-5.1); PROTEIN TOTAL,TP 7.6 g/dL (6.4-8.2); SODIUM,NA 140 mmol/L (136-145)
[2022-10-13] MEDS ORDERED: Ketorolac 30 MG/ML SDV IVPUSH ONE (19:47)
[2022-10-13 19:48] LABS: LACTIC ACID 1.9 mmol/L (0.4-2.0)
[2022-10-13 19:49] LABS: ESTIMATED GFR 82 mL/min (>=60); ETHANOL BLOOD MEDICAL < 3 mg/dL (0)
[2022-10-13] MEDS ORDERED: Ondansetron 4 MG/2 ML SDV IVPUSH ONE (19:54)
[2022-10-13 20:45] LABS: APPEARANCE,URINE CLEAR (CLEAR); BILIRUBIN,URINE NEGATIVE (NEGATIVE); COLOR,URINE YELLOW (YELLOW); GLUCOSE,URINE NEGATIVE (NEGATIVE); KETONES,URINE NEGATIVE (NEGATIVE); LEUKOCYTE ESTERASE,URINE NEGATIVE (NEGATIVE); NITRITE,URINE NEGATIVE (NEGATIVE); OCCULT BLOOD,URINE TRACE-INTACT (NEGATIVE); PROTEIN,URINE 30 (NEGATIVE); UROBILINOGEN,URINE 0.2 mg/dL (0.2-1.0)
[2022-10-13 20:50] LABS: AMPHETAMINES,URINE NEGATIVE (NEGATIVE); BARBITURATES,URINE NEGATIVE (NEGATIVE); BENZODIAZEPINE,URINE NEGATIVE (NEGATIVE); MDMA (ECSTASY), URINE NEGATIVE (NEGATIVE); METHADONE,URINE NEGATIVE (NEGATIVE); METHAMPHETAMINES,URINE NEGATIVE (NEGATIVE); OPIATES,URINE NEGATIVE (NEGATIVE); OXYCODONE,URINE NEGATIVE (NEGATIVE); PHENCYCLIDINE,URINE NEGATIVE (NEGATIVE); TCA,URINE NEGATIVE (NEGATIVE)
[2022-10-13 20:54] LABS: AMORPHOUS SEDIMENT,URINE MANY /HPF (NOT SEEN); BACTERIA,URINE FEW /HPF (0-FEW/HPF); EPITHELIAL CELLS,URINE NOT SEEN /HPF (NOT SEEN); MUCUS,URINE MODERATE /LPF (NOT SEEN); RBC,URINE 0-5 /HPF (0-5); WBC,URINE 0-5 /HPF (0-5/HPF)
== END 2022-10-13 20:51 | disposition home or self-care (01) ==
LOC: DL.ED 18:50
DX: G40.909 Epilepsy, unspecified, not intractable, without status epilepticus (principal); Z88.1 Allergy status to other antibiotic agents
CPT/HCPCS: 36415; 70450; 80053; 80305; 80307; 81001; 83605; 85025; 86140; 93005; 96361; 96374; 96375; 99284; 99285; J1885; J1953; J2405; J7030; 93010

== ENCOUNTER 2023-01-15 13:31 | Emergency (ER) | payer MEDICAID ==
[2023-01-15] MEDS: Sodium Chloride 0.9% 1,000 ML IV ONE (13:44)
[2023-01-15 13:55] VITALS: BP 124/71; PULSE 70
[2023-01-15 14:02] LABS: BASOPHILS PERCENT AUTO 0.3 % (0.0-1.0); EOSINOPHILS PERCENT AUTO 2.1 % (1.0-3.0); HEMATOCRIT 40.9 % (40.0-54.0); LYMPHOCYTES PERCENT AUTO 27.5 % (20.5-50.1); MEAN CORPUSCULAR HEMOGLOBIN 32.2 pg (27.0-34.0); MEAN CORPUSCULAR HGB CONC 34.2 g/dL (33.0-35.0); MONOCYTES PERCENT AUTO 6.4 % (2-8); NEUTROPHILS PERCENT AUTO 63.7 % (42.2-75.2); PLATELET COUNT,PLT 285 10^3/uL (150-450); RED BLOOD CELL COUNT 4.35 10^6/uL (4.6-6.2); WHITE BLOOD CELL COUNT,WBC 6.7 10^3/uL (5.0-10.0)
[2023-01-15 14:13] LABS: INR 0.9 (0.9-1.2); PROTHROMBIN TIME 9.6 SEC (9.0-12.0)
[2023-01-15 14:15] LABS: ALANINE AMINOTRANSFERASE,ALT 39 U/L (16-63); ALKALINE PHOSPHATASE 112 U/L (46-116); ASPARTATE AMNIOTRANSFERASE,AST 26 U/L (15-37); BILIRUBIN TOTAL 0.3 mg/dL (0.2-1.0); BLOOD UREA NITROGEN,BUN 15 mg/dL (7-18); BUN/CREATININE RATIO 13.9 (No establ ref range); CALCIUM 9.1 mg/dL (8.5-10.1); CARBON DIOXIDE,CO2 25 mmol/L (21-32); CHLORIDE,CL 106 mmol/L (98-107); CREATININE 1.08 mg/dL (0.70-1.30); GLUCOSE RANDOM 105 mg/dL (70-99); MAGNESIUM 2.1 mg/dL (1.8-2.4); PROTEIN TOTAL,TP 7.9 g/dL (6.4-8.2); SODIUM,NA 141 mmol/L (136-145)
[2023-01-15 14:16] LABS: ESTIMATED GFR 87 mL/min (>=60)
[2023-01-15 14:17] LABS: ETHANOL BLOOD MEDICAL < 3 mg/dL (0)
[2023-01-15 14:27] LABS: LACTIC ACID 2.9 mmol/L (0.4-2.0)
[2023-01-15] MEDS: levETIRAcetam in NaCl (iso-os) 1,500 MG in Premix Bag 1 BAG IV ONE ×2 (15:04)
[2023-01-15] MEDS: Sodium Chloride 0.9% 10 ML Syringe FLUSH PRN (15:05)
== END 2023-01-15 15:26 | disposition home or self-care (01) ==
LOC: DL.ED 13:31
DX: G40.909 Epilepsy, unspecified, not intractable, without status epilepticus (principal); Z88.1 Allergy status to other antibiotic agents
CPT/HCPCS: 36415; 70450; 80053; 80307; 83605; 83735; 85025; 85610; 85730; 93005; 93010; 96361; 96374; 99284; 99285-25; J1953; J3490; J7030

== ENCOUNTER 2023-02-13 13:44 | Emergency (ER) | payer MEDICAID ==
[2023-02-13 13:31] LABS: BASOPHILS PERCENT AUTO 0.2 % (0.0-1.0); HEMATOCRIT 41.8 % (40.0-54.0); HEMOGLOBIN 14.6 g/dL (14.0-18.0); LYMPHOCYTES PERCENT AUTO 21.8 % (20.5-50.1); MEAN CORPUSCULAR HEMOGLOBIN 32.5 pg (27.0-34.0); MEAN CORPUSCULAR HGB CONC 34.9 g/dL (33.0-35.0); MEAN CORPUSCULAR VOLUME 93.1 fL (80-100); MONOCYTES PERCENT AUTO 6.3 % (2-8); NEUTROPHILS PERCENT AUTO 70.7 % (42.2-75.2); PLATELET COUNT,PLT 317 10^3/uL (150-450); RED BLOOD CELL COUNT 4.49 10^6/uL (4.6-6.2); WHITE BLOOD CELL COUNT,WBC 9.1 10^3/uL (5.0-10.0)
[2023-02-13 13:35] VITALS: BP 119/80; PULSE 80
[~2023-02-13 13:44] MED LIST: Ondansetron 4 MG/2 ML SDV IVPUSH ONE; Sodium Chloride 0.9% 1,000 ML IV ONE; levETIRAcetam in NaCl (iso-os) 1,500 MG in Premix Bag 1 BAG IV ONE
[2023-02-13 13:52] LABS: A/G RATIO 1.1; ANION GAP 18.8 mEq/L (7-13); BILIRUBIN TOTAL 0.3 mg/dL (0.2-1.0); BUN/CREATININE RATIO 13.1 (No establ ref range); C-REACTIVE PROTEIN 0.76 ng/dL (<=0.30); CALCIUM 8.9 mg/dL (8.5-10.1); CREATININE 0.99 mg/dL (0.70-1.30); EST CRCL DRUG DOSING (CG) 105.6 mL/min; MAGNESIUM 2.2 mg/dL (1.8-2.4); POTASSIUM,K 3.8 mmol/L (3.5-5.1); PROTEIN TOTAL,TP 7.8 g/dL (6.4-8.2)
[2023-02-13 13:57] LABS: LACTIC ACID 2.8 mmol/L (0.4-2.0)
== END 2023-02-13 15:02 | disposition home or self-care (01) ==
LOC: DL.ED 13:44
DX: G40.909 Epilepsy, unspecified, not intractable, without status epilepticus (principal); Z88.1 Allergy status to other antibiotic agents
CPT/HCPCS: 36415; 70450; 80053; 83605; 83735; 85025; 86140; 93005; 93010; 96365; 99284; J1953; J2405; J7030

== ENCOUNTER 2023-10-06 16:32 | Emergency (ER) | payer MEDICARE, MEDICAID ==
[2023-10-06] MEDS ORDERED: Sodium Chloride 0.9% 10 ML Syringe FLUSH PRN (16:42)
[2023-10-06] MEDS: Sodium Chloride 0.9% 1,000 ML IV ONE (16:49)
[2023-10-06] MEDS: Ondansetron 4 MG/2 ML SDV IV ONE (16:49)
[2023-10-06] MEDS: levETIRAcetam in NaCl (iso-os) 3,000 MG in Premix Bag 1 BAG IV ONE (16:49)
[2023-10-06 17:01] LABS: BASOPHILS PERCENT AUTO 0.3 % (0.0-1.0); EOSINOPHILS PERCENT AUTO 0.4 % (1.0-3.0); HEMATOCRIT 44.8 % (40.0-54.0); LYMPHOCYTES PERCENT AUTO 14.1 % (20.5-50.1); MEAN CORPUSCULAR HEMOGLOBIN 32.1 pg (27.0-34.0); MEAN CORPUSCULAR HGB CONC 33.5 g/dL (33.0-35.0); MEAN CORPUSCULAR VOLUME 95.7 fL (80-100); MONOCYTES PERCENT AUTO 4.6 % (2-8); NEUTROPHILS PERCENT AUTO 80.6 % (42.2-75.2); PLATELET COUNT,PLT 322 10^3/uL (150-450); RED BLOOD CELL COUNT 4.68 10^6/uL (4.6-6.2)
[2023-10-06 17:17] LABS: ALANINE AMINOTRANSFERASE,ALT 61 U/L (16-63); ALKALINE PHOSPHATASE 77 U/L (46-116); ANION GAP 15.7 mEq/L (7-13); ASPARTATE AMNIOTRANSFERASE,AST 35 U/L (15-37); BILIRUBIN TOTAL 0.3 mg/dL (0.2-1.0); BLOOD UREA NITROGEN,BUN 13 mg/dL (7-18); BUN/CREATININE RATIO 11.9 (No establ ref range); CALCIUM 8.7 mg/dL (8.5-10.1); CARBON DIOXIDE,CO2 26 mmol/L (21-32); CHLORIDE,CL 102 mmol/L (98-107); CREATINE KINASE,CK 88 U/L (39-308); CREATININE 1.09 mg/dL (0.70-1.30); GLUCOSE RANDOM 120 mg/dL (70-99); LIPASE 47 U/L (16-77); MAGNESIUM 1.8 mg/dL (1.8-2.4); POTASSIUM,K 3.7 mmol/L (3.5-5.1); PROTEIN TOTAL,TP 8.1 g/dL (6.4-8.2); SODIUM,NA 140 mmol/L (136-145)
[2023-10-06 17:27] LABS: ESTIMATED GFR 86 mL/min (>=60)
[2023-10-06 17:28] LABS: ETHANOL BLOOD MEDICAL < 3 mg/dL (0)
[2023-10-06 17:31] LABS: LACTIC ACID 2.6 mmol/L (0.4-2.0)
[2023-10-06 17:54] LABS: CORONAVIRUS COVID-19 NAA NEGATIVE (NEGATIVE); INFLUENZA A NAA NEGATIVE (NEGATIVE); INFLUENZA B NAA NEGATIVE (NEGATIVE); RESPIRATORY SYNCYTIAL VIR NAA NEGATIVE (NEGATIVE)
[2023-10-06 18:18] LABS: APPEARANCE,URINE CLEAR (CLEAR); BILIRUBIN,URINE NEGATIVE (NEGATIVE); COLOR,URINE YELLOW (YELLOW); GLUCOSE,URINE NEGATIVE (NEGATIVE); KETONES,URINE TRACE (NEGATIVE); LEUKOCYTE ESTERASE,URINE TRACE (NEGATIVE); NITRITE,URINE NEGATIVE (NEGATIVE); OCCULT BLOOD,URINE NEGATIVE (NEGATIVE); PH,URINE 7.5 (5.0-9.0); PROTEIN,URINE 30 (NEGATIVE)
[2023-10-06 18:22] LABS: AMPHETAMINES,URINE NEGATIVE (NEGATIVE); BARBITURATES,URINE NEGATIVE (NEGATIVE); BENZODIAZEPINE,URINE NEGATIVE (NEGATIVE); MDMA (ECSTASY), URINE NEGATIVE (NEGATIVE); METHADONE,URINE NEGATIVE (NEGATIVE); METHAMPHETAMINES,URINE NEGATIVE (NEGATIVE); OPIATES,URINE NEGATIVE (NEGATIVE); OXYCODONE,URINE NEGATIVE (NEGATIVE); PHENCYCLIDINE,URINE NEGATIVE (NEGATIVE); TCA,URINE NEGATIVE (NEGATIVE)
[2023-10-06] MEDS ORDERED: Take Home: Ondansetron 4 MG Tab.DIS, 5 Tab Pack PO ONE (18:23)
[2023-10-06 18:28] LABS: BACTERIA,URINE FEW /HPF (0-FEW/HPF); EPITHELIAL CELLS,URINE FEW /HPF (NOT SEEN); MUCUS,URINE MODERATE /LPF (NOT SEEN); RBC,URINE 0-5 /HPF (0-5)
== END 2023-10-06 18:59 | disposition home or self-care (01) ==
LOC: DL.ED 16:32
DX: G40.909 Epilepsy, unspecified, not intractable, without status epilepticus (principal); E86.0 Dehydration; Z88.1 Allergy status to other antibiotic agents; Z79.899 Other long term (current) drug therapy
CPT/HCPCS: 0241U; 36415; 80053; 80305; 80307; 81001; 82550; 83605; 83690; 83735; 85025; 87086; 96361; 96365; 96375; 99284; J1953; J2405; J3360; J7030

== ENCOUNTER 2023-11-18 12:38 | Inpatient (IN) | payer MEDICARE, MEDICAID ==
[2023-11-18] MEDS: Ondansetron 4 MG/2 ML SDV IVPUSH ONE ×2 (12:49→14:43)
[2023-11-18] MEDS: Ondansetron 4 MG/2 ML SDV ONE (12:51)
[2023-11-18] MEDS: Sodium Chloride 0.9% 1,000 ML IV ONE (13:01)
[2023-11-18] MEDS: Famotidine 20 MG/2 ML SDV IVPUSH ONE (13:01)
[2023-11-18 13:30] LABS: ALBUMIN 3.6 g/dL (3.4-5.0); BLOOD UREA NITROGEN,BUN 11 mg/dL (7-18); MAGNESIUM 2.4 mg/dL (1.8-2.4)
[2023-11-18 13:38] LABS: BASOPHILS PERCENT AUTO 0.2 % (0.0-1.0); EOSINOPHILS PERCENT AUTO 0.2 % (1.0-3.0); HEMATOCRIT 42.9 % (40.0-54.0); HEMOGLOBIN 14.5 g/dL (14.0-18.0); MEAN CORPUSCULAR HEMOGLOBIN 32.8 pg (27.0-34.0); MEAN CORPUSCULAR HGB CONC 33.8 g/dL (33.0-35.0); MEAN CORPUSCULAR VOLUME 97.1 fL (80-100); MONOCYTES PERCENT AUTO 6.2 % (2-8); NEUTROPHILS PERCENT AUTO 83.4 % (42.2-75.2); PLATELET COUNT,PLT 266 10^3/uL (150-450); RED BLOOD CELL COUNT 4.42 10^6/uL (4.6-6.2); WHITE BLOOD CELL COUNT,WBC 12.6 10^3/uL (5.0-10.0)
[2023-11-18 14:06] LABS: A/G RATIO 0.92; ALANINE AMINOTRANSFERASE,ALT 43 U/L (16-63); ALKALINE PHOSPHATASE 74 U/L (46-116); ANION GAP 16.2 mEq/L (7-13); ASPARTATE AMNIOTRANSFERASE,AST 26 U/L (15-37); BILIRUBIN TOTAL 0.3 mg/dL (0.2-1.0); BUN/CREATININE RATIO 10.7 (No establ ref range); CALCIUM 8.9 mg/dL (8.5-10.1); CARBON DIOXIDE,CO2 23 mmol/L (21-32); CHLORIDE,CL 105 mmol/L (98-107); CREATININE 1.03 mg/dL (0.70-1.30); GLUCOSE RANDOM 123 mg/dL (70-99); LIPASE 38 U/L (16-77); POTASSIUM,K 4.2 mmol/L (3.5-5.1); PROTEIN TOTAL,TP 7.5 g/dL (6.4-8.2); SODIUM,NA 140 mmol/L (136-145)
[2023-11-18 14:08] LABS: ESTIMATED GFR 92 mL/min (>=60); ETHANOL BLOOD MEDICAL < 3 mg/dL (0)
[2023-11-18] MEDS: Levofloxacin/Dextrose 5%-Water 500 MG in Premix Bag 1 BAG IV ONE (14:37)
[2023-11-18] MEDS ORDERED: Flumazenil 0.1 MG/ML 5 ML MDV IVPUSH PRN (15:30)
[2023-11-18] MEDS: Metoclopramide 10 MG/2 ML SDV IVPUSH ONE (15:57)
[2023-11-18] MEDS ORDERED: Albuterol/Ipratropium 3.0-0.5 MG/3 ML Neb Soln NEB PRN (15:57)
[2023-11-18] MEDS ORDERED: Polyethylene Glycol 3350 Powder 17 GM Packet PO PRN (15:57)
[2023-11-18] MEDS ORDERED: Magnesium Hydroxide 400 MG/5 ML Susp 30 ML Cup PO PRN (15:57)
[2023-11-18] MEDS ORDERED: Acetaminophen 325 MG Tab PO PRN (15:57)
[2023-11-18] MEDS ORDERED: Temazepam 15 MG Cap PO PRN ×2 (15:57→19:41)
[2023-11-18] MEDS ORDERED: Promethazine 25 MG/ML SDV IM PRN (15:57)
[2023-11-18] MEDS ORDERED: Sennosides/Docusate Sodium 50-8.6 MG Tab PO PRN (15:57)
[2023-11-18] MEDS ORDERED: Metoprolol Tartrate 5 MG/5 ML SDV IVPUSH PRN (16:06)
[2023-11-18] MEDS ORDERED: hydrALAZINE 20 MG/ML SDV IVPUSH PRN (16:06)
[2023-11-18] MEDS ORDERED: LORazepam 2 MG/ML SDV IVPUSH PRN (16:07)
[2023-11-18] MEDS ORDERED: 50% Dextrose in Water 50 ML Syringe IVPUSH PRN (16:12)
[2023-11-18] MEDS ORDERED: Glucagon,Human Recombinant 1 MG Vial IM PRN (16:12)
[2023-11-18] MEDS: Pantoprazole 40 MG Vial IVPUSH ONE (16:28)
[2023-11-18 16:29] LABS: HEMOGLOBIN A1C 5.4 % (<5.7)
[2023-11-18] MEDS: Insulin Lispro 100 Units/ML 3 ML Vial SUBCUT SCH (17:55)
[2023-11-18] MEDS: Dextrose 5%-0.9% NaCl 1,000 ML IV SCH (17:58)
[2023-11-18] MEDS: Clindamycin in 0.9 % Sod Chlor 600 MG in Premix Bag 1 BAG IV SCH (18:09)
[2023-11-18] MEDS ORDERED: ZONISAMIDE 100 MG PO SCH (21:00)
[2023-11-18] MEDS: DIVALPROEX SODIUM 500 MG PO SCH (21:16)
[2023-11-18] MEDS: NALOXONE HCL PO SCH (21:16)
[2023-11-18] MEDS: BUPRENORPHINE HCL PO SCH (21:16)
[2023-11-18] MEDS: Saccharomyces Boulardii (Probiotic) 250 MG Cap PO SCH (21:17)
[2023-11-18] MEDS: Aspirin 325 MG Tab PO ONE (21:17)
[2023-11-18] MEDS: Heparin Sodium 5,000 Units/ML Vial IVPUSH ONE (21:18)
[2023-11-18] MEDS: Heparin Sodium/0.45% NaCl 25,000 UNITS/500 ML BAG IV SCH (21:21)
[2023-11-19 03:48] LABS: AMPHETAMINES,URINE NEGATIVE (NEGATIVE); BARBITURATES,URINE NEGATIVE (NEGATIVE); BENZODIAZEPINE,URINE POSITIVE (NEGATIVE); MDMA (ECSTASY), URINE NEGATIVE (NEGATIVE); METHADONE,URINE NEGATIVE (NEGATIVE); METHAMPHETAMINES,URINE POSITIVE (NEGATIVE); OPIATES,URINE NEGATIVE (NEGATIVE); OXYCODONE,URINE NEGATIVE (NEGATIVE); PHENCYCLIDINE,URINE NEGATIVE (NEGATIVE); TCA,URINE NEGATIVE (NEGATIVE)
[2023-11-19] MEDS: Heparin Sodium 5,000 Units/ML Vial IVPUSH ONE (04:25)
[2023-11-19 06:40] LABS: BASOPHILS PERCENT AUTO 0.2 % (0.0-1.0); EOSINOPHILS PERCENT AUTO 0.4 % (1.0-3.0); HEMATOCRIT 39.1 % (40.0-54.0); LYMPHOCYTES PERCENT AUTO 21.8 % (20.5-50.1); MEAN CORPUSCULAR HEMOGLOBIN 32.9 pg (27.0-34.0); MEAN CORPUSCULAR HGB CONC 33.2 g/dL (33.0-35.0); MONOCYTES PERCENT AUTO 8.2 % (2-8); NEUTROPHILS PERCENT AUTO 69.4 % (42.2-75.2); PLATELET COUNT,PLT 238 10^3/uL (150-450); RED BLOOD CELL COUNT 3.95 10^6/uL (4.6-6.2); WHITE BLOOD CELL COUNT,WBC 10.3 10^3/uL (5.0-10.0)
[2023-11-19 07:08] LABS: ANION GAP 11.7 mEq/L (7-13); BILIRUBIN TOTAL 0.4 mg/dL (0.2-1.0); BUN/CREATININE RATIO 11.8 (No establ ref range); CALCIUM 8.2 mg/dL (8.5-10.1); CREATININE 0.93 mg/dL (0.70-1.30); EST CRCL DRUG DOSING (CG) 111.25 mL/min; MAGNESIUM 2.2 mg/dL (1.8-2.4); POTASSIUM,K 3.7 mmol/L (3.5-5.1); PROTEIN TOTAL,TP 6.5 g/dL (6.4-8.2)
[2023-11-19 07:10] LABS: A/G RATIO 0.86
[2023-11-19 08:28] VITALS: BP 117/65; PULSE 69
[2023-11-19] MEDS: Aspirin 81 MG Tab.Chew PO SCH (11:07)
[2023-11-19] MEDS: Pantoprazole 40 MG Vial IVPUSH SCH (11:08)
== END 2023-11-19 10:25 | disposition left against medical advice (07) | DRG 100 ==
LOC: DL.ED 12:38 → UNDOADMIN 15:29 → DL.MS 15:29
PROVIDERS: ADMIT Internal Medicine; ATTEND Internal Medicine
DX: G40.909 Epilepsy, unspecified, not intractable, without status epilepticus (principal); G40.901 Epilepsy, unspecified, not intractable, with status epilepticus; R79.89 Other specified abnormal findings of blood chemistry; Z88.8 Allergy status to other drugs, medicaments and biological substances; J18.9 Pneumonia, unspecified organism; J69.0 Pneumonitis due to inhalation of food and vomit; G89.4 Chronic pain syndrome; F41.9 Anxiety disorder, unspecified; D72.829 Elevated white blood cell count, unspecified; F15.90 Other stimulant use, unspecified, uncomplicated; F12.90 Cannabis use, unspecified, uncomplicated; E78.5 Hyperlipidemia, unspecified; R73.9 Hyperglycemia, unspecified; Z88.1 Allergy status to other antibiotic agents; Z79.899 Other long term (current) drug therapy
CPT/HCPCS: 36415; 70450; 71045; 80053; 80061; 80305-QW; 80307; 82550; 82947; 83036; 83690; 83735; 84484; 85025; 85730; 87070; 87205; 93005; 93010; 99284; A9270-GY; C9113; J1644; J1815-GY; J1956; J2405; J2765; J3360; J3490; J7030; J7042

== ENCOUNTER 2024-02-25 12:17 | Emergency (ER) | payer MEDICAID, MEDICARE ==
[2024-02-25 12:32] VITALS: BP 113/67; PULSE 67
[2024-02-25 12:39] LABS: BASOPHILS PERCENT AUTO 0.2 % (0.0-1.0); HEMOGLOBIN 14.1 g/dL (14.0-18.0); LYMPHOCYTES PERCENT AUTO 41.1 % (20.5-50.1); MEAN CORPUSCULAR HEMOGLOBIN 33.6 pg (27.0-34.0); MEAN CORPUSCULAR HGB CONC 34.4 g/dL (33.0-35.0); MEAN CORPUSCULAR VOLUME 97.6 fL (80-100); MONOCYTES PERCENT AUTO 9.5 % (2-8); NEUTROPHILS PERCENT AUTO 48.2 % (42.2-75.2); PLATELET COUNT,PLT 221 10^3/uL (150-450); WHITE BLOOD CELL COUNT,WBC 5.1 10^3/uL (5.0-10.0)
[2024-02-25 12:56] LABS: ALANINE AMINOTRANSFERASE,ALT 62 U/L (16-63); ALBUMIN 3.8 g/dL (3.4-5.0); ALKALINE PHOSPHATASE 61 U/L (46-116); ANION GAP 8.8 mEq/L (7-13); ASPARTATE AMNIOTRANSFERASE,AST 50 U/L (15-37); BILIRUBIN TOTAL 0.5 mg/dL (0.2-1.0); BLOOD UREA NITROGEN,BUN 15 mg/dL (7-18); BUN/CREATININE RATIO 14.4 (No establ ref range); CARBON DIOXIDE,CO2 30 mmol/L (21-32); CHLORIDE,CL 104 mmol/L (98-107); CREATININE 1.04 mg/dL (0.70-1.30); EST CRCL DRUG DOSING (CG) 102.44 mL/min; GLUCOSE RANDOM 107 mg/dL (70-99); POTASSIUM,K 3.8 mmol/L (3.5-5.1); PROTEIN TOTAL,TP 7.5 g/dL (6.4-8.2); SODIUM,NA 139 mmol/L (136-145)
[2024-02-25 12:58] LABS: C-REACTIVE PROTEIN < 0.50 ng/dL (<=0.50); ESTIMATED GFR 91 mL/min (>=60)
== END 2024-02-25 13:19 | disposition home or self-care (01) ==
LOC: DL.ED 12:17
DX: R07.9 Chest pain, unspecified (principal); F17.210 Nicotine dependence, cigarettes, uncomplicated; Z88.1 Allergy status to other antibiotic agents
CPT/HCPCS: 36415; 80053; 83735; 84484; 85025; 86140; 93005; 99285

== ENCOUNTER 2024-08-28 16:54 | Emergency (ER) | payer SELFPAY ==
[2024-08-28 17:13] VITALS: PULSE 64
[2024-08-28 17:49] LABS: BASOPHILS PERCENT AUTO 0.6 % (0.0-1.0); EOSINOPHILS PERCENT AUTO 1.3 % (1.0-3.0); HEMATOCRIT 40.5 % (40.0-54.0); HEMOGLOBIN 13.7 g/dL (14.0-18.0); LYMPHOCYTES PERCENT AUTO 32.9 % (20.5-50.1); MEAN CORPUSCULAR HGB CONC 33.8 g/dL (33.0-35.0); MEAN CORPUSCULAR VOLUME 100.5 fL (80-100); MONOCYTES PERCENT AUTO 12.3 % (2-8); NEUTROPHILS PERCENT AUTO 52.9 % (42.2-75.2); O2 DELIVERY DEVICE ROOM AIR; PLATELET COUNT,PLT 186 10^3/uL (150-450); RED BLOOD CELL COUNT 4.03 10^6/uL (4.6-6.2); WHITE BLOOD CELL COUNT,WBC 5.4 10^3/uL (5.0-10.0)
[2024-08-28 17:50] LABS: O2 SATURATION VENOUS 32.2 % (60-80); PCO2 VENOUS 58 mmHg (41-51); PH,VENOUS 7.33 (7.31-7.41); PO2 VENOUS 28 mmHg (35-42)
[2024-08-28 17:51] LABS: BASE EXCESS VENOUS 2.7 mmol/l ((-2)-(+3)); BICARBONATE,VENOUS 30 mmol/l (19-25)
[2024-08-28 18:11] LABS: A/G RATIO 0.9; ALBUMIN 3.6 g/dL (3.4-5.0); ANION GAP 8.4 mEq/L (7-13); BILIRUBIN TOTAL 0.3 mg/dL (0.2-1.0); BUN/CREATININE RATIO 14.7 (No establ ref range); CALCIUM 8.9 mg/dL (8.5-10.1); CREATININE 1.02 mg/dL (0.70-1.30); EST CRCL DRUG DOSING (CG) 100.38 mL/min; PHOSPHORUS 4.1 mg/dL (2.6-4.7); POTASSIUM,K 4.4 mmol/L (3.5-5.1); PROTEIN TOTAL,TP 7.4 g/dL (6.4-8.2)
[2024-08-28] MEDS: hydrOXYzine HCl 25 MG Tab PO ONE (18:26)
[2024-08-28] MEDS: Take Home: hydrOXYzine HCl 25 MG Tab, 4 Tab Pack PO ONE (18:26)
[2024-08-28 18:38] VITALS: BP 123/70
== END 2024-08-28 18:35 | disposition home or self-care (01) ==
LOC: DL.ED 16:54
DX: F41.0 Panic disorder [episodic paroxysmal anxiety] (principal); T42.6X5A Adverse effect of other antiepileptic and sedative-hypnotic drugs, initial encounter; F17.210 Nicotine dependence, cigarettes, uncomplicated; Z88.1 Allergy status to other antibiotic agents; Z79.899 Other long term (current) drug therapy
CPT/HCPCS: 36415; 71046; 80053; 82803; 83735; 84100; 84484; 85025; 93005; 99285; A9270